=== PATIENT | female | born 1975 | race Caucasian/White ===

== ENCOUNTER 2016-03-21 19:38 | Emergency (ER) ==
[2016-03-21 20:02] VITALS: BP 109/73; TEMP 97.2; BMI 20.7
--- NOTE | 2016-03-21 20:15 | ED.PDOC ---
General ED Provider: Dr. CONRADO MCNEIL Chief Complaint: Respiratory Complaint Stated Complaint: Patient is a 40 year old female who comes to the ER with Sinus congestion, sore throat, cough that is productive green sputum. He was Seen this ER a week ago Prescribed Augmentin. Took her fathers percocet for back pain. Strep screen was negative but strep culture was postive. Time Seen by Physician: 19:50 Mode of Arrival: Walk-In Information Source: Patient Nursing and Triage Documentation Reviewed and Agree: Yes EENT Complaint Exam - Throat Complaint/Exam Onset/Duration: 3 days Symptoms Are: Still present Timimg: Constant Initial Severity: Moderate Current Severity: Severe Aggravating: Reports: None Alleviating: Reports: None Associated Signs and Symptoms: Reports: Dysphagia Uvula Midline: Yes Felicia-tonsillar Fluctuence: No Scarlatinaform Rash Present: No Lesions: Absent: Lip, Gums, Tongue, Buccal Mucosa, Pharynx Exanthem: Absent: Lip, Gums, Tongue, Buccal Mucosa, Pharynx Stridor Present: No Sinus Tenderness Present: No Tonsillar Hypertrophy Present: No Tonsillar Exudate Present: No Felicia-tonsillar Swelling Present: No Adenopathy Present: No Splenomegaly Present: No Differential Diagnoses: Pharyngitis Review of Systems - Review Of Systems Constitutional: Reports: No symptoms Eyes: Reports: No symptoms Ears, Nose, Mouth, Throat: Reports: Throat pain Respiratory: Reports: No symptoms Cardiac: Reports: No symptoms GI: Reports: No symptoms : Reports: No symptoms Musculoskeletal: Reports: Joint pain (Right shoulder ) Skin: Reports: No symptoms Neurological: Reports: Anxiety Endocrine: Reports: No symptoms Hematologic/Lymphatic: Reports: No symptoms All Other Systems: Reviewed and Negative Past Medical History - Past Medical History Previously Healthy: Yes Endocrine: Reports: None Cardiovascular: Reports: None Respiratory: Reports: None Hematological: Reports: None Gastrointestinal: Reports: None Genitourinary: Reports: None Neuro/Psych: Reports: None Musculoskeletal: Reports: Back Pain (BULGING DISK LOWER BACK, L5 AND L3 MESSED UP,OLD FRACTURE IN T-SPINE) Cancer: Reports: None Last Menstrual Period: 2 days - Surgical History General Surgical History: Reports: (X2), Cholecystectomy, Orthopedic - Family History Family History: Reports: Unknown - Social History Smoking Status: Current every day smoker, Light tobacco smoker Hx Substance Use: No Alcohol Screening: None Physical Exam - Physical Exam Appearance: Ill-appearing Ill-appearing: Mild Pain Distress: Severe Eyes: KISHORE, EOMI, Conjunctiva clear Neck: Supple Respiratory: Airway patent, Breath sounds clear, Breath sounds equal, Respirations nonlabored Cardiovascular: Tachycardia GI/: Soft, Nontender, No masses, Bowel sounds normal, No Organomegaly Musculoskeletal: Limited ROM (right shoulder to full abduction. ) Skin: Warm, Dry, Normal color Neurological: Sensation intact, Motor intact, Reflexes intact, Cranial nerves intact, Alert, Oriented Psychiatric: Anxious Critical Care Note - Critical Care Note Total Time (mins): 0 Course - Course Vital Signs: Temp Pulse Resp BP Pulse Ox 03/21/16 19:41 97.2 F L 119 H 20 109/73 100 Departure - Departure Time of Disposition: 20:32 Disposition: HOME SELF-CARE Discharge Problem: Strep throat Shoulder pain, right Qualifiers: Chronicity: chronic Qualifier Code: (M25.511) Pain in right shoulder Instructions: Pharyngitis (ED), Shoulder Pain (ED) Condition: Fair Pt referred to PMD for follow-up: Yes Additional Instructions: Take pain medications as prescribed Continue your antibiotics to completion. Follow up with PCP in 3 days Prescriptions: Hydrocodone/Acetaminophen [[place] 5-325 Tablet] 1 tab PO Q6HR PRN #20 tablet PRN Reason: PAIN Allergies/Adverse Reactions: Allergies No Known Allergies Allergy (Verified 03/21/16 19:51) Home Medications: Ambulatory Orders Medroxyprogesterone Acetate [Depo-Subq Provera 104] 104 mg SQ DIRECTED Hydrocodone/Acetaminophen [[place] 5-325 Tablet] 1 tab PO Q6HR PRN #20 tablet 07/31 Disposition Discussed With: Patient
[2016-03-21] MEDS ORDERED: DILAUDID 1 MG/ML SYRINGE IM STA (20:30)
[2016-03-21] MEDS ORDERED: ZOFRAN 4 MG/2 ML IM STA (20:32)
== END 2016-03-21 21:19 | disposition home or self-care (01) ==
LOC: ED 19:38
DX: J02.0 Streptococcal pharyngitis (principal); M25.511 Pain in right shoulder; F17.210 Nicotine dependence, cigarettes, uncomplicated
CPT/HCPCS: 96372; 99282

== ENCOUNTER 2016-03-31 21:29 | Emergency (ER) ==
[2016-03-31 21:37] VITALS: BP 109/78; TEMP 98.4; BMI 20.4
--- NOTE | 2016-03-31 22:04 | ED.PDOC ---
General ED Provider: Dr. JULIOCESAR RESENDIZ-ER Chief Complaint: Shoulder Pain/Injury Stated Complaint: i have a rotator cuff injury--i lifted on a bedboard and reinjured it Time Seen by Physician: 22:02 Mode of Arrival: Walk-In Information Source: Patient Exam Limitations: No limitations Nursing and Triage Documentation Reviewed and Agree: Yes Musculoskeletal Complaint Exam - Shoulder Pain Complaint/Exam Mechanism of Injury: Reports: No known trauma Onset/Duration: several hours Symptoms Are: Still present Timing: Intermittent Initial Severity: Mild Current Severity: Mild Location: Reports: Discrete (right shoulder) Character: Reports: Dull, Aching Alleviating: Reports: None Aggravating: Reports: Movement, Lifting, Flexion, Extension, Internal rotation Associated Signs and Symptoms: Denies: Swelling, Redness, Bruising, Fever, Weakness, Numbness, Tingling Non-Orthopedic Risk Factors: Reports: None DVT Risk Factors: Reports: None Septic Arthritis Risk Factors: Reports: None Related Surgical History: Reports: None Shoulder Findings: Present: Swelling, Ecchymosis Tenderness: Present: Rotator cuff muscles Limited Range of Motion: Present: Abduction, Adduction, Flexion, Extension, Internal rotation, Rotator cuff insertion Differential Diagnoses: AC Seperation, Arthritis, Rotator Cuff Injury, Sprain, Strain Review of Systems - Review Of Systems Constitutional: Reports: No symptoms Eyes: Reports: No symptoms Ears, Nose, Mouth, Throat: Reports: No symptoms Respiratory: Reports: No symptoms Cardiac: Reports: No symptoms GI: Reports: No symptoms : Reports: No symptoms Musculoskeletal: Reports: Muscle pain Skin: Reports: No symptoms Neurological: Reports: No symptoms Endocrine: Reports: No symptoms Hematologic/Lymphatic: Reports: No symptoms All Other Systems: Reviewed and Negative Past Medical History - Past Medical History Previously Healthy: Yes Endocrine: Reports: None Cardiovascular: Reports: None Respiratory: Reports: None Hematological: Reports: None Gastrointestinal: Reports: None Genitourinary: Reports: None Neuro/Psych: Reports: None Musculoskeletal: Reports: Back Pain (BULGING DISK LOWER BACK, L5 AND L3 MESSED UP,OLD FRACTURE IN T-SPINE) Cancer: Reports: None Last Menstrual Period: PRESENTLY - Surgical History General Surgical History: Reports: (X2), Cholecystectomy, Orthopedic - Family History Family History: Reports: Unknown - Social History Smoking Status: Current every day smoker, Light tobacco smoker Hx Substance Use: No Alcohol Screening: None Lives: With family - Immunizations Tetanus Shot up to Date: Yes Physical Exam - Physical Exam Appearance: Well-appearing, No pain distress, Well-nourished Pain Distress: Mild Eyes: KISHORE, EOMI, Conjunctiva clear ENT: Ears normal, Nose normal, Oropharynx normal Neck: Supple Respiratory: Airway patent Cardiovascular: RRR, Pulses normal, No rub, No murmur GI/: Soft, Nontender, No masses, Bowel sounds normal, No Organomegaly Musculoskeletal: Limited ROM Skin: Warm, Dry, Normal color Neurological: Sensation intact, Motor intact, Reflexes intact, Cranial nerves intact, Alert, Oriented Psychiatric: Affect appropriate, Mood appropriate Interpretation - Radiology Interpretation Radiology Interpretation By: ED Physician Radiology Results: Negative Critical Care Note - Critical Care Note Total Time (mins): 0 Course - Course Orders, Labs, Meds: Orders Category Date Time Status SHOULDER, RIGHT MIN 2V Stat RADS 03/31/16 21:48 Taken Vital Signs: Temp Pulse Resp BP Pulse Ox 03/31/16 21:30 98.4 F 108 H 18 109/78 100 Departure - Departure Time of Disposition: 22:04 Disposition: HOME SELF-CARE Discharge Problem: Injury of shoulder region Instructions: Rotator Cuff Injury (ED) Condition: Good Pt referred to PMD for follow-up: Yes Additional Instructions: norco 5mg q 4hrs prn pain #10--f/u with pcp Allergies/Adverse Reactions: Allergies No Known Allergies Allergy (Verified 03/31/16 21:37) Home Medications: Ambulatory Orders Medroxyprogesterone Acetate [Depo-Subq Provera 104] 104 mg SQ DIRECTED Disposition Discussed With: Patient
[2016-03-31] MEDS ORDERED: NORCO 5-325 PO STA (22:27)
--- NOTE | 2016-03-31 22:46 | DI ---
EXAM: Three views of the right shoulder. History: Right shoulder trauma. Findings: No acute fracture or dislocation. No abnormal calcifications or radiopaque foreign bo s. Joint spaces are preserved. Impression: No acute osseous abnormality.
== END 2016-03-31 22:32 | disposition home or self-care (01) ==
LOC: ED 21:29
DX: S49.91XA Unspecified injury of right shoulder and upper arm, initial encounter (principal); F17.210 Nicotine dependence, cigarettes, uncomplicated
CPT/HCPCS: 99282

== ENCOUNTER 2016-04-05 22:32 | Emergency (ER) | payer OTHER ==
[2016-04-05] MEDS ORDERED: NORCO 5-325 PO STA (22:36)
--- NOTE | 2016-04-05 22:39 | ED.PDOC ---
General ED Provider: Dr. JULIOCESAR RESENDIZ-ER Chief Complaint: Shoulder Pain/Injury Stated Complaint: im having trouble moving my arm at the shoulder..i have rotator tear Time Seen by Physician: 22:37 Mode of Arrival: Walk-In Information Source: Patient Exam Limitations: No limitations Nursing and Triage Documentation Reviewed and Agree: Yes Musculoskeletal Complaint Exam - Shoulder Pain Complaint/Exam Mechanism of Injury: Reports: No known trauma Onset/Duration: several weeks Symptoms Are: Still present Timing: Intermittent Initial Severity: Mild Current Severity: Moderate Location: Reports: Discrete (right shoulder) Character: Reports: Dull, Aching Alleviating: Reports: None Aggravating: Reports: Movement, Lifting, Flexion, Extension, Internal rotation, External rotation, Abduction Associated Signs and Symptoms: Denies: Swelling, Redness, Bruising, Fever, Weakness, Numbness, Tingling Related History: Reports: Similar episode (lonhg hx of rotator cuff issues) Non-Orthopedic Risk Factors: Reports: None DVT Risk Factors: Reports: None Septic Arthritis Risk Factors: Reports: None Related Surgical History: Reports: Other Orthopedic Surgery Shoulder Findings: Present: Adson's Sign Tenderness: Present: Proximal humerus, Rotator cuff muscles Limited Range of Motion: Present: Abduction, Adduction, Flexion, Extension, Internal rotation, External rotation, Rotator cuff muscles Differential Diagnoses: Rotator Cuff Injury Review of Systems - Review Of Systems Constitutional: Reports: No symptoms Eyes: Reports: No symptoms Ears, Nose, Mouth, Throat: Reports: No symptoms Respiratory: Reports: No symptoms Cardiac: Reports: No symptoms GI: Reports: No symptoms : Reports: No symptoms Musculoskeletal: Reports: Joint pain, Muscle pain Skin: Reports: No symptoms Neurological: Reports: No symptoms Endocrine: Reports: No symptoms Hematologic/Lymphatic: Reports: No symptoms All Other Systems: Reviewed and Negative Past Medical History - Past Medical History Previously Healthy: Yes Endocrine: Reports: None Cardiovascular: Reports: None Respiratory: Reports: None Hematological: Reports: None Gastrointestinal: Reports: None Genitourinary: Reports: None Neuro/Psych: Reports: None Musculoskeletal: Reports: Back Pain (BULGING DISK LOWER BACK, L5 AND L3 MESSED UP,OLD FRACTURE IN T-SPINE) Cancer: Reports: None - Surgical History General Surgical History: Reports: (X2), Cholecystectomy, Orthopedic - Family History Family History: Reports: Unknown - Social History Smoking Status: Current every day smoker, Light tobacco smoker Hx Substance Use: No Alcohol Screening: None Lives: With family Physical Exam - Physical Exam Appearance: Well-appearing, No pain distress, Well-nourished Pain Distress: Mild Eyes: KISHORE, EOMI, Conjunctiva clear ENT: Ears normal, Nose normal, Oropharynx normal Neck: Supple Respiratory: Airway patent Cardiovascular: RRR, Pulses normal, No rub, No murmur GI/: Soft, Nontender, No masses, Bowel sounds normal, No Organomegaly Musculoskeletal: Limited ROM Skin: Warm Neurological: Sensation intact, Motor intact, Reflexes intact, Cranial nerves intact, Alert, Oriented Psychiatric: Affect appropriate, Mood appropriate Critical Care Note - Critical Care Note Total Time (mins): 0 Course - Course Orders, Labs, Meds: Orders Category Date Time Status Hydrocodone Bit/Acetaminophen [[place] 5-325] MEDS 04/05/16 22:36 Stat 1 tab PO ONCE STA Medications Generic Name Dose Route Start Last Admin Trade Name Freq PRN Reason Stop Dose Admin Acetaminophen/Hydrocodone Bitart 1 tab 04/05/16 22:36 [place] 5-325 PO 04/05/16 22:37 ONCE STA Departure - Departure Time of Disposition: 22:39 Disposition: HOME SELF-CARE Discharge Problem: Rotator cuff disorder Qualifiers: Laterality: right Qualifier Code: (M67.911) Unspecified disorder of synovium and tendon, right shoulder Instructions: Rotator Cuff Injury (ED) Condition: Good Pt referred to PMD for follow-up: Yes Additional Instructions: norco 5mg q 4hrs prn paiun#10--f/u with pcp Allergies/Adverse Reactions: Allergies No Known Allergies Allergy (Verified 03/31/16 21:37) Home Medications: Ambulatory Orders Medroxyprogesterone Acetate [Depo-Subq Provera 104] 104 mg SQ DIRECTED Disposition Discussed With: Patient
[2016-04-05 22:45] VITALS: BP 110/74; TEMP 98.6; BMI 20.6
== END 2016-04-05 23:01 | disposition home or self-care (01) ==
LOC: ED 22:32
DX: M67.911 Unspecified disorder of synovium and tendon, right shoulder (principal); F17.210 Nicotine dependence, cigarettes, uncomplicated
CPT/HCPCS: 99282

== ENCOUNTER 2016-04-18 19:27 | Emergency (ER) ==
[2016-04-18 19:34] VITALS: BP 108/75; TEMP 98.7; BMI 20.2
--- NOTE | 2016-04-18 19:43 | ED.PDOC ---
General ED Provider: Dr. JULIOCESAR RESENDIZ-ER Chief Complaint: Shoulder Pain/Injury Stated Complaint: my shoulder is injured again---i have been to ortho and they aware waiting on my mri films..it hurts to move(patient has been here several times with same complaint) Time Seen by Physician: 19:30 Mode of Arrival: Walk-In Information Source: Patient Exam Limitations: No limitations Nursing and Triage Documentation Reviewed and Agree: Yes Musculoskeletal Complaint Exam - Shoulder Pain Complaint/Exam Mechanism of Injury: Reports: No known trauma Onset/Duration: several weeks Symptoms Are: Still present Timing: Constant Initial Severity: Mild Current Severity: Mild Location: Reports: Discrete Character: Reports: Dull, Aching Alleviating: Reports: None Aggravating: Reports: Movement, Lifting, Flexion, Extension, Internal rotation, External rotation, Abduction Associated Signs and Symptoms: Denies: Swelling, Redness, Bruising, Fever, Weakness, Numbness, Tingling Related History: Reports: Similar episode Non-Orthopedic Risk Factors: Reports: None Shoulder Findings: Absent: Swelling, Ecchymosis, Abnormal contour, Rotation, Ligamentous instability, Laceration, Erythema, Warmth, Blisters, Other joint pain, Foreign body, Adson's Sign Tenderness: Present: Proximal humerus, Rotator cuff muscles Limited Range of Motion: Present: Abduction, Adduction, Flexion, Extension Differential Diagnoses: Rotator Cuff Injury Review of Systems - Review Of Systems Constitutional: Reports: No symptoms Eyes: Reports: No symptoms Ears, Nose, Mouth, Throat: Reports: No symptoms Respiratory: Reports: No symptoms Cardiac: Reports: No symptoms GI: Reports: No symptoms : Reports: No symptoms Musculoskeletal: Reports: Muscle pain Skin: Reports: No symptoms Neurological: Reports: No symptoms Endocrine: Reports: No symptoms Hematologic/Lymphatic: Reports: No symptoms All Other Systems: Reviewed and Negative Past Medical History - Past Medical History Previously Healthy: Yes Endocrine: Reports: None Cardiovascular: Reports: None Respiratory: Reports: None Hematological: Reports: None Gastrointestinal: Reports: None Genitourinary: Reports: None Neuro/Psych: Reports: None Musculoskeletal: Reports: Back Pain (BULGING DISK LOWER BACK, L5 AND L3 MESSED UP,OLD FRACTURE IN T-SPINE) Cancer: Reports: None Last Menstrual Period: 04/12/16 - Surgical History General Surgical History: Reports: (X2), Cholecystectomy, Orthopedic - Family History Family History: Reports: Unknown - Social History Smoking Status: Current every day smoker, Light tobacco smoker Hx Substance Use: No Alcohol Screening: None Lives: With family - Immunizations Tetanus Shot up to Date: Yes Physical Exam - Physical Exam Appearance: Well-appearing, No pain distress, Well-nourished Pain Distress: Mild Eyes: KISHORE, EOMI, Conjunctiva clear ENT: Ears normal Neck: Supple Respiratory: Airway patent Cardiovascular: RRR GI/: Soft, Nontender, No masses, Bowel sounds normal, No Organomegaly Musculoskeletal: Normal strength, ROM intact, No edema, No calf tenderness, Limited ROM Skin: Warm Neurological: Sensation intact, Motor intact, Reflexes intact, Cranial nerves intact, Alert, Oriented Psychiatric: Affect appropriate, Mood appropriate Critical Care Note - Critical Care Note Total Time (mins): 0 Course - Course Orders, Labs, Meds: Orders Category Date Time Status Gabapentin [Neurontin] MEDS 04/18/16 19:45 Discontinued 100 mg PO ONCE STA Medications Discontinued Medications Generic Name Dose Route Start Last Admin Trade Name Freq PRN Reason Stop Dose Admin Gabapentin 100 mg 04/18/16 19:45 04/18/16 19:52 Neurontin PO 04/18/16 19:46 100 mg ONCE STA Administration Vital Signs: Temp Pulse Resp BP Pulse Ox 04/18/16 19:28 98.7 F 94 H 20 108/75 100 Departure - Departure Time of Disposition: 19:43 Disposition: HOME SELF-CARE Discharge Problem: Shoulder pain Instructions: Shoulder Pain (ED) Condition: Good Pt referred to PMD for follow-up: Yes Additional Instructions: toradol 10mg qid prn pain #16--f/u with pcp or walk in ortho clinic Allergies/Adverse Reactions: Allergies No Known Allergies Allergy (Verified 04/18/16 19:44) Home Medications: Ambulatory Orders 1 [No Reported Medications] 04/18/16 Disposition Discussed With: Patient
[2016-04-18] MEDS ORDERED: NEURONTIN PO STA (19:45)
== END 2016-04-18 20:05 | disposition home or self-care (01) ==
LOC: ED 19:27
DX: M25.519 Pain in unspecified shoulder (principal); F17.210 Nicotine dependence, cigarettes, uncomplicated
CPT/HCPCS: 99282

== ENCOUNTER 2016-07-06 20:54 | Emergency (ER) ==
[2016-07-06 21:00] VITALS: BP 111/68; TEMP 98.1; BMI 21.2
--- NOTE | 2016-07-06 21:22 | ED.PDOC ---
General ED Provider: Dr. CONRADO MCNEIL Chief Complaint: Shoulder Pain/Injury Stated Complaint: Complains of shoulder pain after lifting boxes helping her mother move. Time Seen by Physician: 21:21 Mode of Arrival: Walk-In Information Source: Patient Exam Limitations: No limitations Nursing and Triage Documentation Reviewed and Agree: Yes Musculoskeletal Complaint Exam - Shoulder Pain Complaint/Exam Mechanism of Injury: Reports: Other (lifting injury ) Onset/Duration: 2 days Symptoms Are: Still present Timing: Constant Initial Severity: Moderate Current Severity: Severe Location: Reports: Diffuse Character: Reports: Aching, Throbbing Alleviating: Reports: None Aggravating: Reports: Movement, Lifting Associated Signs and Symptoms: Denies: Swelling, Redness, Bruising, Fever, Weakness, Numbness, Tingling DVT Risk Factors: Reports: None Septic Arthritis Risk Factors: Reports: None Shoulder Findings: Present: Swelling. Absent: Ecchymosis Tenderness: Present: Rotator cuff muscles Limited Range of Motion: Present: Internal rotation Shoulder Picture: 1 - tenderness to palpation Differential Diagnoses: Sprain, Strain, Tendonitis - Back Pain Complaint/Exam Mechanism of Injury: Reports: No known trauma Onset/Duration: 3 days Symptoms Are: Still present Timing: Constant Initial Severity: Moderate Current Severity: Severe Character: Reports: Aching, Throbbing Aggravating: Reports: Movements, Bending, Walking Alleviating: Reports: None Associated Signs and Symptoms: Reports: Weakness. Denies: Swelling, Redness, Bruising, Fever, Numbness, Tingling, Abdominal pain, Flank pain, Bladder incontinence, Bowel incontinence, Weight loss, Pain with weight bearing TAD Risk Factors: Reports: None AAA Risk Factors: Reports: None Cauda Equina Risk Factors: Reports: None Focal Tenderness: Yes (Lower back ) Paraspinal Muscle Tenderness: Yes Paraspinal Muscle Spasm: Yes Scoliosis: No Lordosis: No Kyphosis: No SLR Test: Right Negative, Left Negative Hip Motion Testing Pain: Right Negative, Left Negative Focal Weakness: Present: None Focal Sensory Loss: Present: None Gait: Present: Normal Back Picture: 1 - tenderness to palpation Differential Diagnoses: Strain, Sprain Review of Systems - Review Of Systems Constitutional: Reports: No symptoms Eyes: Reports: No symptoms Ears, Nose, Mouth, Throat: Reports: No symptoms Respiratory: Reports: No symptoms Cardiac: Reports: No symptoms GI: Reports: No symptoms : Reports: No symptoms Musculoskeletal: Reports: Joint pain, Joint swelling Skin: Reports: No symptoms Neurological: Reports: Anxiety Endocrine: Reports: No symptoms Hematologic/Lymphatic: Reports: No symptoms All Other Systems: Reviewed and Negative Past Medical History - Past Medical History Previously Healthy: Yes Endocrine: Reports: None Cardiovascular: Reports: None Respiratory: Reports: None Hematological: Reports: None Gastrointestinal: Reports: None Genitourinary: Reports: None Neuro/Psych: Reports: None Musculoskeletal: Reports: Back Pain (BULGING DISK LOWER BACK, L5 AND L3 MESSED UP,OLD FRACTURE IN T-SPINE) Cancer: Reports: None Last Menstrual Period: YESTERDAY - Surgical History General Surgical History: Reports: (X2), Cholecystectomy, Orthopedic - Family History Family History: Reports: Unknown - Social History Smoking Status: Current every day smoker, Light tobacco smoker Hx Substance Use: No Alcohol Screening: None - Immunizations Tetanus Shot up to Date: Yes Physical Exam - Physical Exam Appearance: Thin Ill-appearing: Mild Pain Distress: Severe Neck: Supple Respiratory: Airway patent, Breath sounds clear, Breath sounds equal, Respirations nonlabored Cardiovascular: RRR GI/: Soft Musculoskeletal: Limited ROM (righth shoulder ) Skin: Warm, Dry, Normal color Neurological: Sensation intact, Motor intact, Alert, Oriented Psychiatric: Anxious Critical Care Note - Critical Care Note Total Time (mins): 0 Course - Course Orders, Labs, Meds: Orders Category Date Time Status Meperidine HCl/Pf [Demerol 50 mg/ml Syringe] MEDS 07/06/16 21:42 Discontinued 50 mg IM ONCE STA Promethazine HCl [Phenergan 25 mg/ml Vial] MEDS 07/06/16 21:42 Discontinued 12.5 mg IM ONCE STA Medications Discontinued Medications Generic Name Dose Route Start Last Admin Trade Name Freq PRN Reason Stop Dose Admin Meperidine HCl 50 mg 07/06/16 21:42 07/06/16 21:56 Demerol 50 Mg/Ml Syringe IM 07/06/16 21:43 50 mg ONCE STA Administration Promethazine HCl 12.5 mg 07/06/16 21:42 07/06/16 21:55 Phenergan 25 Mg/Ml Vial IM 07/06/16 21:43 12.5 mg ONCE STA Administration Vital Signs: Temp Pulse Resp BP Pulse Ox 07/06/16 20:54 98.1 F 101 H 18 111/68 100 Departure - Departure Time of Disposition: 22:25 Disposition: HOME SELF-CARE Discharge Problem: Shoulder pain Instructions: Shoulder Sprain (ED) Condition: Fair Pt referred to PMD for follow-up: Yes Additional Instructions: Take medications as prescribed Follow up with PCP in 3 days Prescriptions: Tramadol HCl [Ultram] 50 mg PO Q6H PRN #14 tablet PRN Reason: Severe Pain Allergies/Adverse Reactions: Allergies No Known Allergies Allergy (Verified 07/06/16 21:00) Home Medications: Ambulatory Orders 1 [No Reported Medications] 04/18/16 Tramadol HCl [Ultram] 50 mg PO Q6H PRN #14 tablet 07/06/16 Disposition Discussed With: Patient, Family
[2016-07-06] MEDS ORDERED: PHENERGAN 25 MG/ML VIAL IM STA (21:42)
[2016-07-06] MEDS ORDERED: DEMEROL 50 MG/ML SYRINGE IM STA (21:42)
== END 2016-07-06 22:29 | disposition home or self-care (01) ==
LOC: ED 20:54
DX: S43.401A Unspecified sprain of right shoulder joint, initial encounter (principal); M54.5 Low back pain; F17.210 Nicotine dependence, cigarettes, uncomplicated; X50.0XXA Overexertion from strenuous movement or load, initial encounter
CPT/HCPCS: 96372; 99282

== ENCOUNTER 2016-12-18 20:07 | Emergency (ER) ==
[2016-12-18 20:14] VITALS: BP 105/74; TEMP 97.6; BMI 19.8
[2016-12-18] MEDS ORDERED: SODIUM CHLORIDE 1,000 ML IV STA (20:30)
[2016-12-18] MEDS ORDERED: ZOFRAN 4 MG/2 ML IVP STA (20:30)
[2016-12-18] MEDS ORDERED: MORPHINE 2 MG/ML SYRINGE IVP PRN (20:30)
--- NOTE | 2016-12-18 20:43 | ED.PDOC ---
General ED Provider: Dr. CONRADO MCNEIL Chief Complaint: Abdominal Pain Stated Complaint: lower left abd pain. vomiting Time Seen by Physician: 20:30 Mode of Arrival: Walk-In Information Source: Patient Exam Limitations: No limitations Nursing and Triage Documentation Reviewed and Agree: Yes Review of Systems - Review Of Systems Constitutional: Reports: No symptoms GI: Reports: Abdominal pain, Nausea, Poor appetite, Vomiting All Other Systems: Reviewed and Negative Past Medical History - Past Medical History Previously Healthy: Yes Endocrine: Reports: None Cardiovascular: Reports: None Respiratory: Reports: None Hematological: Reports: None Gastrointestinal: Reports: None Genitourinary: Reports: None Neuro/Psych: Reports: None Musculoskeletal: Reports: Arthritis, Back Pain (BULGING DISK LOWER BACK, L5 AND L3 MESSED UP,OLD FRACTURE IN T-SPINE) Cancer: Reports: None Last Menstrual Period: 12/12 Other Pertinent Past Medical History: Vaginal bleed - Surgical History General Surgical History: Reports: (X2), Cholecystectomy, Orthopedic - Family History Family History: Reports: Unknown - Social History Smoking Status: Current every day smoker Hx Substance Use: No Alcohol Screening: None - Immunizations Tetanus Shot up to Date: Yes Physical Exam - Physical Exam Appearance: Ill-appearing Ill-appearing: Moderate Pain Distress: Severe Neck: Supple Respiratory: Airway patent, Breath sounds clear, Breath sounds equal, Respirations nonlabored Cardiovascular: RRR GI/: Soft, Tender Musculoskeletal: Normal strength, ROM intact, No edema, No calf tenderness Skin: Warm, Dry, Normal color Neurological: Sensation intact, Motor intact, Reflexes intact, Cranial nerves intact, Alert, Oriented Psychiatric: Anxious Re-Evaluation - Re-Evaluation Time of Re-Evaluation: 22:07 Status: Improved Vital Signs Stable: Yes Critical Care Note - Critical Care Note Total Time (mins): 0 Course - Course Hematology/Chemistry: 12/18/16 20:45 12/18/16 20:45 Orders, Labs, Meds: Lab Review 12/18/16 12/18/16 12/18/16 20:45 20:45 20:45 WBC 4.99 RBC 3.83 L Hgb 10.1 L Hct 31.7 L MCV 82.8 MCH 26.4 L MCHC 31.9 RDW Coeff of Shannan 17.2 H Plt Count 223 Immature Gran % (Auto) 0.2 Neut % (Auto) 59.2 Lymph % (Auto) 21.8 [place] % (Auto) 8.4 Eos % (Auto) 9.8 H Baso % (Auto) 0.6 Immature Gran # (Auto) 0.0 Neut # 3.0 Lymph # 1.1 [place] # 0.4 Eos # 0.5 Baso # 0.0 Sodium 140 Potassium 3.5 Chloride 104 Carbon Dioxide 30 Anion Gap 9.5 BUN 10 Creatinine 0.74 Estimated GFR (MDRD) 87.00 BUN/Creatinine Ratio 13.51 Glucose 91 Calcium 9.2 Total Bilirubin 0.23 AST 32 ALT 22 Alkaline Phosphatase 83 Total Protein 6.7 Albumin 3.0 L Globulin 3.7 Albumin/Globulin Ratio 0.81 Amylase 48 Lipase 31 Blood Type A POSITIVE Antibody Screen Negative Orders Category Date Time Status ED IV/MEDIPORT/POWERPORT .ONCE EMERGENCY 12/18/16 20:30 Active AMYLASE Stat LAB 12/18/16 20:45 Completed CBC W/ AUTO DIFF Stat LAB 12/18/16 20:45 Completed COMPREHENSIVE METABOLIC PANEL Stat LAB 12/18/16 20:45 Completed LIPASE Stat LAB 12/18/16 20:45 Completed TYPE AND SCREEN Stat LAB 12/18/16 20:45 Completed 0.9 % Sodium Chloride [Saline Flush] MEDS 12/18/16 20:30 Discontinued 1 syr IVF PRN PRN Morphine Sulfate [Morphine 2 mg/ml Syringe] MEDS 12/18/16 21:05 Discontinued 2 mg .ROUTE .STK-MED ONE Morphine Sulfate [Morphine 2 mg/ml Syringe] MEDS 12/18/16 20:30 Discontinued 2 mg IVP Q4H PRN Ondansetron HCl/Pf [Zofran 4 mg/2 ml] MEDS 12/18/16 20:30 Discontinued 4 mg IVP ONCE STA Sodium Chloride 0.9% [Sodium Chloride] 1,000 ml MEDS 12/18/16 20:30 Discontinued IV BOLUS Medications Discontinued Medications Generic Name Dose Route Start Last Admin Trade Name Freq PRN Reason Stop Dose Admin Sodium Chloride 1,000 mls @ 1,000 mls/hr 12/18/16 20:30 12/18/16 20:59 Sodium Chloride IV 12/18/16 21:29 1,000 mls/hr BOLUS STA Administration Morphine Sulfate 2 mg 12/18/16 20:30 12/18/16 21:06 Morphine 2 Mg/Ml Syringe IVP 2 mg Q4H PRN Administration Severe Pain Ondansetron HCl 4 mg 12/18/16 20:30 12/18/16 21:02 Zofran 4 Mg/2 Ml IVP 12/18/16 20:31 4 mg ONCE STA Administration Sodium Chloride 1 syr 12/18/16 20:30 12/18/16 20:59 Saline Flush IVF 1 syr PRN PRN Administration To flush IV Vital Signs: Temp Pulse Resp BP Pulse Ox 12/18/16 20:08 97.6 F 95 H 20 105/74 97 Departure - Departure Time of Disposition: 22:07 Disposition: HOME SELF-CARE Discharge Problem: Abdominal pain Instructions: Abdominal Pain (ED) Condition: Fair Pt referred to PMD for follow-up: Yes Additional Instructions: call radiation oncologist to get Radiation closer to home. Dr. Bc Glaser [address] [place] [address] [phone] Follow up with PCP in 3 days to get your Pain medications renewed Prescriptions: Hydrocodone/Acetaminophen [[place] 5-325 Tablet] 1 tab PO Q6HR PRN #20 tablet PRN Reason: PAIN Allergies/Adverse Reactions: Allergies No Known Allergies Allergy (Verified 11/04/16 21:17) Home Medications: Ambulatory Orders Hydrocodone/Acetaminophen [[place] 5-325 Tablet] 1 tab PO Q6HR PRN #20 tablet 07/01 Disposition Discussed With: Patient
[2016-12-18 21:04] LABS: BASOPHILS % (AUTO) 0.6 % (0.0-3.0); EOSINOPHILS # (AUTO) 0.5 K/ul (0.0-0.7); EOSINOPHILS % (AUTO) 9.8 % (0.0-7.0); HEMATOCRIT 31.7 % (37.0-47.0); HEMOGLOBIN 10.1 g/dl (12.0-16.0); IMMATURE GRANULOCYTE % (AUTO) 0.2 % (0.0-5.0); LYMPHOCYTES # (AUTO) 1.1 K/uL (0.60-3.4); LYMPHOCYTES % (AUTO) 21.8 (10.0-50.0); MEAN CORPUSCULAR HEMOGLOBIN 26.4 pg (27.0-31.0); MEAN CORPUSCULAR HGB CONC 31.9 (31.8-35.4); MEAN CORPUSCULAR VOLUME 82.8 fl (81.0-99.0); MONOCYTES # (AUTO) 0.4 K/uL (0.4-2.0); MONOCYTES % (AUTO) 8.4 (0-10); NEUTROPHILS % (AUTO) 59.2; PLATELET COUNT 223 10^3/uL (140-440); RED BLOOD COUNT 3.83 10^6/ul (4.20-5.40); WHITE BLOOD COUNT 4.99 K/ul (4.6-10.2)
[2016-12-18] MEDS ORDERED: MORPHINE 2 MG/ML SYRINGE ONE (21:05)
[2016-12-18 21:23] LABS: ALBUMIN/GLOBULIN RATIO 0.81; ANION GAP 9.5; BILIRUBIN,TOTAL 0.23 mg/dL (0.00-1.20); BUN/CREATININE RATIO 13.51; CALCIUM 9.2 mg/dL (8.2-10.2); CREATININE 0.74 mg/dL (0.60-1.30); POTASSIUM 3.5 mmol/L (3.5-5.10); TOTAL PROTEIN 6.7 g/dL (6.4-8.2)
== END 2016-12-18 22:25 | disposition home or self-care (01) ==
LOC: ED 20:07
DX: R10.32 Left lower quadrant pain (principal); R11.2 Nausea with vomiting, unspecified; F17.210 Nicotine dependence, cigarettes, uncomplicated
CPT/HCPCS: 36415; 80053; 82150; 83690; 85025; 86850; 86900; 96361; 96374; 96375; 99283

== ENCOUNTER 2017-03-03 02:54 | Emergency (ER) ==
[2017-03-03] MEDS ORDERED: DILAUDID 1 MG/ML SYRINGE IM STA (02:57)
[2017-03-03] MEDS ORDERED: PHENERGAN 25 MG/ML VIAL IM STA (02:57)
[2017-03-03 03:06] VITALS: BP 107/57; TEMP 98.1; BMI 19.1
[2017-03-03 03:24] LABS: BASOPHILS % (AUTO) 0.8 % (0.0-3.0); EOSINOPHILS # (AUTO) 0.2 K/ul (0.0-0.7); EOSINOPHILS % (AUTO) 4.1 % (0.0-7.0); HEMATOCRIT 31.5 % (37.0-47.0); IMMATURE GRANULOCYTE % (AUTO) 0.5 % (0.0-5.0); LYMPHOCYTES # (AUTO) 0.4 K/uL (0.60-3.4); LYMPHOCYTES % (AUTO) 11.2 (10.0-50.0); MEAN CORPUSCULAR HEMOGLOBIN 26.2 pg (27.0-31.0); MEAN CORPUSCULAR HGB CONC 31.7 (31.8-35.4); MEAN CORPUSCULAR VOLUME 82.7 fl (81.0-99.0); MONOCYTES # (AUTO) 0.4 K/uL (0.4-2.0); MONOCYTES % (AUTO) 12.1 (0-10); NEUTROPHILS # (AUTO) 2.6 K/ul (2.0-6.9); NEUTROPHILS % (AUTO) 71.3; PLATELET COUNT 288 10^3/uL (140-440); RED BLOOD COUNT 3.81 10^6/ul (4.20-5.40); WHITE BLOOD COUNT 3.65 K/ul (4.6-10.2)
[2017-03-03 03:36] LABS: BILIRUBIN,URINE Negative (NEGATIVE); KETONES,URINE Negative (NEGATIVE); LEUKOCYTE ESTERASE ,URINE 1+ (NEGATIVE); NITRITE,URINE Negative (NEGATIVE); PROTEIN,URINE 3+ (NEGATIVE); URINE, BLOOD 2+ (NEGATIVE)
[2017-03-03 03:38] LABS: ADD URINE MICROSCOPIC YES
[2017-03-03 03:43] LABS: ALBUMIN 3.2 g/dL (3.4-5.0); ALBUMIN/GLOBULIN RATIO 0.8; ANION GAP 15.5; BILIRUBIN,TOTAL 0.16 mg/dL (0.00-1.20); BUN/CREATININE RATIO 10.75; CALCIUM 9.2 mg/dL (8.2-10.2); CREATININE 0.93 mg/dL (0.60-1.30); POTASSIUM 3.5 mmol/L (3.5-5.10); TOTAL PROTEIN 7.2 g/dL (6.4-8.2)
[2017-03-03 03:49] LABS: BACTERIA,URINE 1+ (NOT PRESENT)
--- NOTE | 2017-03-03 03:50 | CT ---
EXAM: CT scan abdomen pelvis without contrast HISTORY: Abdominal and low back pain COMPARISON: CT scan abdomen pelvis 10/31/2016 FINDINGS: Contiguous axial images obtained through the abdomen pelvis without contrast utilizing 3-m m collimation. Sagittal and coronal reconstructions were imaged and reviewed.. The visualized lung bases are clear.. There is stable hemangioma within the right lobe of the liver. There has been martin or cholecystectomy. The pancreas, spleen and adrenal glands have normal unenhanced CT appearance. T he right kidneys morphologically normal. There is a double-J stent extending from the left renal pel vis and the bladder without evidence of hydronephrosis or ureterolithiasis.. There is a small amount free fluid in the pelvis. . Endometrium appears less prominent than on the prior examination. Uterus is mildly prominent.. Neural clips are seen within the central pelvis.. There is mild lumbar levos coliosis.. There are no lytic or blastic lesions. IMPRESSION: Status post cholecystectomy. Stable hemangioma right lobe of the liver. ASVD without aneurysm. Left-sided double-J stent without evidence of hydronephrosis or nephrolithiasis. Trace amount free fluid dependent pelvis.
[2017-03-03] MEDS ORDERED: LEVAQUIN PO STA (04:11)
--- NOTE | 2017-03-03 04:14 | ED.PDOC ---
General ED Provider: Dr. JULIOCESAR RESENDIZ-ER Chief Complaint: Urinary Problem Stated Complaint: it hunt to pee and my back hurtx Time Seen by Physician: 03:00 Mode of Arrival: Walk-In Information Source: Patient Exam Limitations: No limitations Nursing and Triage Documentation Reviewed and Agree: Yes Complaint Exam - UTI Female Complaint/Exam Patient Complains of: Reports: Painful urination Onset/Duration: 24hrs Symptoms Are: Still present Timing: Constant Initial Severity: Mild Current Severity: Mild Location of Pain: Reports: Suprapubic Associated Signs and Symptoms: Reports: Fever, Flank pain Patient Rh Status: Unknown CVA Tenderness: No Suprapubic Tenderness: No Differential Diagnoses: Cystitis Review of Systems - Review Of Systems Constitutional: Reports: Chills, Fever Eyes: Reports: No symptoms Ears, Nose, Mouth, Throat: Reports: No symptoms Respiratory: Reports: No symptoms Cardiac: Reports: No symptoms GI: Reports: No symptoms : Reports: Burning, Dysuria, Pain Musculoskeletal: Reports: No symptoms Skin: Reports: No symptoms Neurological: Reports: No symptoms Endocrine: Reports: No symptoms Hematologic/Lymphatic: Reports: No symptoms All Other Systems: Reviewed and Negative Past Medical History - Past Medical History Previously Healthy: Yes Endocrine: Reports: None Cardiovascular: Reports: None Respiratory: Reports: None Hematological: Reports: None Gastrointestinal: Reports: None Genitourinary: Reports: None Neuro/Psych: Reports: None Musculoskeletal: Reports: Arthritis, Back Pain (BULGING DISK LOWER BACK, L5 AND L3 MESSED UP,OLD FRACTURE IN T-SPINE) Cancer: Reports: None Last Menstrual Period: 4 MONTHS AGO, HAD RING TREATMENT 3-4 MONTHS AGO Other Pertinent Past Medical History: Vaginal bleed - Surgical History General Surgical History: Reports: (X2), Cholecystectomy, Orthopedic - Family History Family History: Reports: Unknown - Social History Smoking Status: Current some day smoker, Light tobacco smoker Hx Substance Use: No Alcohol Screening: None - Immunizations Tetanus Shot up to Date: Yes Physical Exam - Physical Exam Appearance: Well-appearing, No pain distress, Well-nourished Eyes: KISHORE ENT: Ears normal, Nose normal, Oropharynx normal Neck: Supple Respiratory: Airway patent, Breath sounds clear, Breath sounds equal, Respirations nonlabored Cardiovascular: RRR, Pulses normal, No rub, No murmur GI/: Soft, Nontender, No masses, Bowel sounds normal, No Organomegaly Musculoskeletal: Normal strength, ROM intact, No edema, No calf tenderness Skin: Warm, Dry, Normal color Neurological: Sensation intact, Motor intact, Reflexes intact, Cranial nerves intact, Alert, Oriented Psychiatric: Affect appropriate, Mood appropriate Interpretation - Radiology Interpretation Radiology Interpretation By: Radiologist Radiology Results: Negative Exam Interpreted: CT Scan Critical Care Note - Critical Care Note Total Time (mins): 0 Course - Course Hematology/Chemistry: 03/03/17 03:18 03/03/17 03:18 Orders, Labs, Meds: Lab Review 03/03/17 03/03/17 03/03/17 03:10 03:18 03:18 WBC 3.65 L RBC 3.81 L Hgb 10.0 L Hct 31.5 L MCV 82.7 MCH 26.2 L MCHC 31.7 L RDW Coeff of Shannan 18.5 H Plt Count 288 Immature Gran % (Auto) 0.5 Neut % (Auto) 71.3 Lymph % (Auto) 11.2 [place] % (Auto) 12.1 H Eos % (Auto) 4.1 Baso % (Auto) 0.8 Immature Gran # (Auto) 0.0 Neut # 2.6 Lymph # 0.4 L [place] # 0.4 Eos # 0.2 Baso # 0.0 Sodium 143 Potassium 3.5 Chloride 107 Carbon Dioxide 24 Anion Gap 15.5 BUN 10 Creatinine 0.93 Estimated GFR (MDRD) 67.00 BUN/Creatinine Ratio 10.75 Glucose 74 Lactic Acid Calcium 9.2 Total Bilirubin 0.16 AST 12 L ALT 8 L Alkaline Phosphatase 68 Total Protein 7.2 Albumin 3.2 L Globulin 4.0 Albumin/Globulin Ratio 0.80 Procalcitonin Urine Color Yellow Urine Clarity Cloudy Urine pH 6.0 Ur Specific [place] >=1.030 Urine Protein 3+ Urine Glucose (UA) Negative Urine Ketones Negative Urine Blood 2+ Urine Nitrite Negative Urine Bilirubin Negative Urine Urobilinogen 0.2 Ur Leukocyte Esterase 1+ Urine Microscopic RBC Tntc Urine Microscopic WBC 10-20 Ur Squamous Epith Cells 2-5 Urine Bacteria 1+ 03/03/17 03/03/17 03:18 03:18 WBC RBC Hgb Hct MCV MCH MCHC RDW Coeff of Shannan Plt Count Immature Gran % (Auto) Neut % (Auto) Lymph % (Auto) [place] % (Auto) Eos % (Auto) Baso % (Auto) Immature Gran # (Auto) Neut # Lymph # [place] # Eos # Baso # Sodium Potassium Chloride Carbon Dioxide Anion Gap BUN Creatinine Estimated GFR (MDRD) BUN/Creatinine Ratio Glucose Lactic Acid 11.0 Calcium Total Bilirubin AST ALT Alkaline Phosphatase Total Protein Albumin Globulin Albumin/Globulin Ratio Procalcitonin < 0.05 Urine Color Urine Clarity Urine pH Ur Specific [place] Urine Protein Urine Glucose (UA) Urine Ketones Urine Blood Urine Nitrite Urine Bilirubin Urine Urobilinogen Ur Leukocyte Esterase Urine Microscopic RBC Urine Microscopic WBC Ur Squamous Epith Cells Urine Bacteria Orders Category Date Time Status BLOOD CULTURE (ED ONLY) Stat LAB 03/03/17 03:18 Received CBC W/ AUTO DIFF Stat LAB 03/03/17 03:18 Completed COMPREHENSIVE METABOLIC PANEL Stat LAB 03/03/17 03:18 Completed LACTIC ACID Stat LAB 03/03/17 03:18 Completed PROCALCITONIN Stat LAB 03/03/17 03:18 Completed URINALYSIS C & S IF INDICATED Stat LAB 03/03/17 03:10 Completed URINE CULTURE Stat LAB 03/03/17 03:10 Received Hydromorphone HCl [Dilaudid 1 mg/ml Syringe] MEDS 03/03/17 02:57 Discontinued 1 mg IM ONCE STA Levofloxacin [Levaquin] MEDS 03/03/17 04:11 Stat 500 mg PO ONCE STA Promethazine HCl [Phenergan 25 mg/ml Vial] MEDS 03/03/17 02:57 Discontinued 25 mg IM ONCE STA CT ABDOMEN/PELVIS WO CONTRAST Stat RADS 03/03/17 02:57 Completed Medications Generic Name Dose Route Start Last Admin Trade Name Freq PRN Reason Stop Dose Admin Levofloxacin 500 mg 03/03/17 04:11 Levaquin PO 03/03/17 04:12 ONCE STA Discontinued Medications Generic Name Dose Route Start Last Admin Trade Name Freq PRN Reason Stop Dose Admin Hydromorphone HCl 1 mg 03/03/17 02:57 03/03/17 03:43 Dilaudid 1 Mg/Ml Syringe IM 03/03/17 02:58 1 mg ONCE STA Administration Promethazine HCl 25 mg 03/03/17 02:57 03/03/17 03:43 Phenergan 25 Mg/Ml Vial IM 03/03/17 02:58 25 mg ONCE STA Administration Vital Signs: Temp Pulse Resp BP Pulse Ox 03/03/17 02:55 98.1 F 86 16 107/57 L 98 Departure - Departure Time of Disposition: 04:13 Disposition: HOME SELF-CARE Discharge Problem: Urinary tract infectious disease Instructions: Urinary Tract Infection in Women (ED) Condition: Good Pt referred to PMD for follow-up: Yes Additional Instructions: levaquin 500mg x 7 dayxs--f/u with pcp Allergies/Adverse Reactions: Allergies No Known Allergies Allergy (Verified 03/03/17 03:06) Home Medications: Ambulatory Orders 1 [No Reported Medications] 03/03/17 Disposition Discussed With: Patient
== END 2017-03-03 04:30 | disposition home or self-care (01) ==
LOC: ED 02:54
DX: N39.0 Urinary tract infection, site not specified (principal); F17.210 Nicotine dependence, cigarettes, uncomplicated
CPT/HCPCS: 36415; 80053; 81001; 83605; 84145; 85025; 87040; 87086; 96372; 99283

== ENCOUNTER 2017-03-09 21:24 | Emergency (ER) ==
[2017-03-09 21:36] VITALS: BP 121/77; TEMP 98.6; BMI 20.4
--- NOTE | 2017-03-09 22:15 | ED.PDOC ---
General ED Provider: Dr. ANGELICA MALAVE Chief Complaint: Non-specific Complaint Stated Complaint: Came for the abdominal pain Vaginal pain,. Left urater stent was removed last week, ever since it hurting to urinate, burning,. Time Seen by Physician: 22:14 Mode of Arrival: Walk-In Information Source: Patient Primary Care Provider: ANGELICA [facility] Nursing and Triage Documentation Reviewed and Agree: Yes Reviewed sepsis parameters & appropriate labs ordered?: Yes System Inflammatory Response Syndrome: Not Applicable Sepsis Protocol: For patient's 13 years and over: Temp is 96.8 and below OR 101 and greater Pulse >90 BPM Resp >20/minute Acutely Altered Mental Status Are patient's symptoms suggestive of a new infection, such as: -Pneumonia -Skin, Soft Tissue -Endocarditis -UTI -Bone, Joint Infection -Implantable Device -Acute Abdominal Infection -Wound Infection -Meningitis -Blood Stream Catheter Infection -Unknown Complaint Exam - Complaint/Exam Patient Complains of: Reports: Pain Symptoms Are: Still present Timing: Constant Initial Severity: Moderate Current Severity: Moderate Location of Pain: Reports: Discrete Character: Reports: Burning, Dull Aggravating: Reports: Movement Alleviating: Reports: None Associated Signs and Symptoms: Denies: Diaphoresis, Back pain, Fever, Hematuria , Dysuria, Constipation, Blood in stool, Rectal pain, Appetite change, Nausea, Vomiting, Decreased urine output, Increased urine frequency, Increased thirst, Decreased activity, Lethargy, Abdominal Pain, Bubble bath use, Vaginal bleeding , Vaginal discharge, Genital swelling, Genital blisters, Retained foreign body Related History: Reports: Similar episode Ectopic Risk Factors: Reports: None Ovarian Torsion Risk Factors: Reports: None Surgical Obstruction Risk Factors: Reports: None Related Surgical History: Reports: None Abdominal Findings: Present: None Differential Diagnoses: Other (vaginal pain) Review of Systems - Review Of Systems Constitutional: Reports: No symptoms Eyes: Reports: No symptoms Ears, Nose, Mouth, Throat: Reports: No symptoms Respiratory: Reports: No symptoms Cardiac: Reports: No symptoms GI: Reports: No symptoms : Reports: Pain Musculoskeletal: Reports: No symptoms Skin: Reports: No symptoms Neurological: Reports: No symptoms Endocrine: Reports: No symptoms Hematologic/Lymphatic: Reports: No symptoms All Other Systems: Reviewed and Negative Past Medical History - Past Medical History Previously Healthy: Yes Endocrine: Reports: None Cardiovascular: Reports: None Respiratory: Reports: None Hematological: Reports: None Gastrointestinal: Reports: None Genitourinary: Reports: None Neuro/Psych: Reports: None Musculoskeletal: Reports: Arthritis, Back Pain (BULGING DISK LOWER BACK, L5 AND L3 MESSED UP,OLD FRACTURE IN T-SPINE) Cancer: Reports: None Last Menstrual Period: PT HAS HAD PARTIAL HYSTERECTOMY Other Pertinent Past Medical History: Vaginal bleed - Surgical History General Surgical History: Reports: (X2), Cholecystectomy, Orthopedic - Family History Family History: Reports: Unknown - Social History Smoking Status: Current some day smoker, Light tobacco smoker Smoking Cessation Counseling Time: > 3 min - 10 min Hx Substance Use: No Alcohol Screening: None - Immunizations Tetanus Shot up to Date: Yes Physical Exam - Physical Exam Appearance: Well-appearing, No pain distress, Well-nourished Eyes: KISHORE, EOMI, Conjunctiva clear ENT: Ears normal, Nose normal, Oropharynx normal Respiratory: Airway patent, Breath sounds clear, Breath sounds equal, Respirations nonlabored Cardiovascular: RRR, Pulses normal, No rub, No murmur GI/: Soft, Nontender, No masses, Bowel sounds normal, No Organomegaly Musculoskeletal: Normal strength, ROM intact, No edema, No calf tenderness Skin: Warm, Dry, Normal color Neurological: Sensation intact, Motor intact, Reflexes intact, Cranial nerves intact, Alert, Oriented Psychiatric: Affect appropriate, Mood appropriate Critical Care Note - Critical Care Note Total Time (mins): 0 Course - Course Orders, Labs, Meds: Orders Category Date Time Status URINALYSIS C & S IF INDICATED Stat LAB 03/09/17 21:56 Uncollected Hydrocodone Bit/Acetaminophen [[place] 5-325] MEDS 03/09/17 22:20 Discontinued 1 tab PO ONCE STA Medications Discontinued Medications Generic Name Dose Route Start Last Admin Trade Name Freq PRN Reason Stop Dose Admin Acetaminophen/Hydrocodone Bitart 1 tab 03/09/17 22:20 03/09/17 22:28 [place] 5-325 PO 03/09/17 22:21 1 tab ONCE STA Administration Vital Signs: Temp Pulse Resp BP Pulse Ox 03/09/17 21:25 98.6 F 90 18 121/77 96 Departure - Departure Time of Disposition: 22:30 Disposition: HOME SELF-CARE Discharge Problem: Vaginal pain Instructions: Urinary Tract Infection in Women (ED) Condition: Stable Pt referred to PMD for follow-up: Yes Additional Instructions: Increase Hydration Needs f/u with surgeon if the pain is continued. Prescriptions: Hydrocodone/Acetaminophen [[place] 5-325 Tablet] 1 tab PO TID PRN #10 tablet PRN Reason: PAIN Allergies/Adverse Reactions: Allergies No Known Allergies Allergy (Verified 03/09/17 21:34) Home Medications: Ambulatory Orders Hydrocodone/Acetaminophen [[facility] 5-325 Tablet] 1 tab PO TID PRN #10 tablet 03/09 Disposition Discussed With: Patient
[2017-03-09] MEDS ORDERED: NORCO 5-325 PO STA (22:20)
== END 2017-03-09 23:05 | disposition home or self-care (01) ==
LOC: ED 21:24
DX: R30.0 Dysuria (principal); R10.2 Pelvic and perineal pain; Z98.890 Other specified postprocedural states; F17.210 Nicotine dependence, cigarettes, uncomplicated
CPT/HCPCS: 81001; 87086; 99283